=== PATIENT | female | born 1955 | race Caucasian/White ===

== ENCOUNTER 2017-05-07 07:11 | Inpatient (IN) | payer OTHER ==
[~2017-05-07] VITALS: Ht 165.1 cm; Wt 67.0 kg
[2017-05-07] MEDS ORDERED: APIX2.5T PO (07:29)
[2017-05-07] MEDS ORDERED: MORPHINE SULFATE 4 MG/ML, 1ML ONE (07:35)
[2017-05-07] MEDS ORDERED: DIPH,PERTUSS(ACELL),TET VAC/PF 0.5 ML IM-VACC ONE ×2 (07:36→08:00)
[2017-05-07] MEDS ORDERED: ONDANSETRON 2MG/ML, 2ML ONE (07:36)
[2017-05-07] MEDS ORDERED: DIPHENHYDRAMINE 50 MG/ML, 1ML ONE (07:55)
[2017-05-07] MEDS ORDERED: MORPHINE SULFATE 4 MG/ML, 1ML IVPush PRN (08:00)
[2017-05-07] MEDS ORDERED: DIPHENHYDRAMINE 50 MG/ML, 1ML IVPush ONE (08:00)
[2017-05-07] MEDS ORDERED: ONDANSETRON ODT 4 MG PO ONE (08:00)
[2017-05-07] MEDS ORDERED: LIDOCAINE 1%, 20ML ONE (08:33)
[2017-05-07] MEDS ORDERED: LORazepam 2 MG/ML, 1ML ONE (08:48)
[2017-05-07] MEDS ORDERED: PROMETHAZINE 25 MG/ML, 1ML ONE (08:48)
[2017-05-07] MEDS ORDERED: LIDOCAINE 1%, 20ML SQ ONE (09:00)
[2017-05-07] MEDS ORDERED: LORazepam 2 MG/ML, 1ML IVPush ONE (09:00)
[2017-05-07] MEDS ORDERED: PROMETHAZINE 25 MG/ML, 1ML IM ONE (09:00)
[2017-05-07 09:47] LABS: ASPARTATE AMINO TRANSFERASE 212 U/L (15-37); BLOOD UREA NITROGEN 11 mg/dL (7-18)
[2017-05-07 10:32] LABS: DIFF TOTAL CELLS COUNTED 100 CELL DIFF
[2017-05-07 10:33] LABS: VERIFY COUNTS? YES
[2017-05-07] MEDS ORDERED: HYDROmorphone 1 MG/ML, 1ML ONE (10:45)
[2017-05-07] MEDS ORDERED: HYDROmorphone 1 MG/ML, 1ML IM ONE (11:00)
[2017-05-07] MEDS ORDERED: HYDROmorphone 1 MG/ML, 1ML IV ONE (11:00)
[2017-05-07] MEDS ORDERED: OMNIPAQUE 350 MG/ML, 75ML BOTTLE ONE (11:51)
[2017-05-07] MEDS ORDERED: ONDANSETRON ODT 4 MG PO PRN (13:30)
[2017-05-07] MEDS ORDERED: ENALAPRILAT 1.25 MG/ML, 2ML IVPush PRN (13:30)
[2017-05-07] MEDS ORDERED: BISACODYL 10 MG SUPP PR PRN (13:30)
[2017-05-07] MEDS ORDERED: ACETAMINOPHEN 325 MG TABLET PO PRN (13:30)
[2017-05-07] MEDS: SODIUM CHLORIDE 0.9% 1,000 ML IV SCH (13:49)
[2017-05-07 14:17] VITALS: BP 135/88
[2017-05-07] MEDS: OXYcodone IR 5MG TABLET PO PRN (17:36)
[2017-05-07 19:50] VITALS: BP 105/69
[2017-05-08 00:27] VITALS: BP 111/72
[2017-05-08] MEDS: SODIUM CHLORIDE 0.9% 1,000 ML IV SCH ×2 (02:59→15:57)
[2017-05-08] MEDS: OXYcodone IR 5MG TABLET PO PRN ×4 (03:16→22:08)
[2017-05-08 05:20] LABS: BLOOD UREA NITROGEN 10 mg/dL (7-18)
[2017-05-08 08:30] VITALS: BP 135/89
[2017-05-08 13:59] VITALS: BP 120/81
[2017-05-08 18:48] VITALS: BP 153/98
[2017-05-09 01:31] VITALS: BP 151/94
[2017-05-09] MEDS: SODIUM CHLORIDE 0.9% 1,000 ML IV SCH (02:05)
[2017-05-09] MEDS: OXYcodone IR 5MG TABLET PO PRN ×3 (05:27→18:24)
[2017-05-09 08:00] VITALS: BP 141/99
[2017-05-09] MEDS: DOCUSATE 100 MG CAPSULE PO PRN (08:35)
[2017-05-09 14:00] VITALS: BP 138/92
[2017-05-09 20:07] VITALS: BP 169/104
[2017-05-10] MEDS: OXYcodone IR 5MG TABLET PO PRN ×3 (01:02→15:42)
[2017-05-10 01:05] VITALS: BP 149/96
[2017-05-10 05:27] LABS: ASPARTATE AMINO TRANSFERASE 22 U/L (15-37)
[2017-05-10 05:30] LABS: BLOOD UREA NITROGEN 7 mg/dL (7-18)
[2017-05-10 07:00] VITALS: BP 142/89
[2017-05-10] MEDS: DOCUSATE 100 MG CAPSULE PO PRN (08:09)
[2017-05-10] MEDS ORDERED: DOCU-30 PO (09:27)
[2017-05-10] MEDS ORDERED: OXYC5TAB3 PO ×2 (09:27→09:54)
[2017-05-10] MEDS ORDERED: TRAM50TA2 PO (09:27)
[2017-05-10] MEDS ORDERED: POLY17PO5 PO (09:55)
[2017-05-10 12:00] VITALS: BP 140/92
[2017-05-10] MEDS ORDERED: ENALAPRILAT 1.25 MG/ML, 2ML IVPush PRN (16:00)
[2017-05-10] MEDS ORDERED: DOCUSATE 100 MG CAPSULE PO PRN (16:00)
[2017-05-10] MEDS ORDERED: BISACODYL 10 MG SUPP PR PRN (16:00)
[2017-05-10] MEDS ORDERED: ONDANSETRON ODT 4 MG PO PRN (16:00)
== END 2017-05-10 16:27 | disposition home or self-care (01) | DRG 184 ==
LOC: ED 11:58 → INTOOBSV 12:31 → EDIP 12:31 → 4WST 15:22 → OBSVTOIN 05-08 13:04
PROVIDERS: ADMIT Hospitalist; ATTEND Hospitalist
PROC: 0HQ0XZZ Repair Scalp Skin, External Approach (ICD-10-PCS; principal; 2017-05-07)
DX: S22.42XA Multiple fractures of ribs, left side, initial encounter for closed fracture (principal); J98.11 Atelectasis; I48.91 Unspecified atrial fibrillation; S42.032A Displaced fracture of lateral end of left clavicle, initial encounter for closed fracture; D72.829 Elevated white blood cell count, unspecified; S01.01XA Laceration without foreign body of scalp, initial encounter; S40.212A Abrasion of left shoulder, initial encounter; W10.8XXA Fall (on) (from) other stairs and steps, initial encounter; Y93.89 Activity, other specified; Y92.89 Other specified places as the place of occurrence of the external cause; Y99.8 Other external cause status; Z90.49 Acquired absence of other specified parts of digestive tract; Z88.5 Allergy status to narcotic agent; Z91.09 Other allergy status, other than to drugs and biological substances
CPT/HCPCS: 12002; 36415; 70450; 71020; 71260; 72125; 80048; 80053; 81003; 85025; 90471; 90715; 93005; 96372; 96374; 96375; G0378; J1170; J2550; J3490; Q0162; Q9967; J1200; J7030